=== PATIENT | male | born 2005 | race Caucasian/White ===

== ENCOUNTER 2024-09-18 11:43 | Emergency (ER) | payer BC ==
[2024-09-18] MEDS ORDERED: Famotidine/PF 20 mg/2ml Vial ONE (12:00)
[2024-09-18] MEDS ORDERED: methylPREDNISolone Sod Succ/PF 125 MG/2 ML VIAL ONE (12:00)
== END 2024-09-18 14:50 | disposition home or self-care (01) ==
LOC: CSHERS 11:43
DX: T78.2XXA Anaphylactic shock, unspecified, initial encounter (principal)
CPT/HCPCS: 96374; 96375; J2919; J3490

== ENCOUNTER 2025-09-24 21:28 | Emergency (ER) | payer BC ==
[2025-09-24] MEDS ORDERED: predniSONE 20 MG TAB ONE (22:04)
== END 2025-09-24 22:30 | disposition home or self-care (01) ==
LOC: CSHERS 21:28
DX: R05.9 Cough, unspecified (principal); J45.909 Unspecified asthma, uncomplicated
CPT/HCPCS: 71045; J7512